=== PATIENT | female | born 1980 | race Caucasian/White ===

== ENCOUNTER 2020-10-11 09:32 | Emergency (ER) | payer OTHER ==
[~2020-10-11] VITALS: Ht 154.9 cm; Wt 59.3 kg
[2020-10-11] MEDS ORDERED: MEDR150I10 IM (09:41)
[2020-10-11 10:30] LABS: BASO % 0.6 % (0.0-1.0); EOS # 0.1 10^3/uL (0.0-0.5); EOS % 2.1 % (0.0-3.0); HEMATOCRIT 46.3 % (36.0-47.0); HEMOGLOBIN 14.7 g/dl (12.0-15.5); LYMPH # 2.2 10^3/uL (1.5-5.0); LYMPH % 34.2 % (24.0-44.0); MEAN CORPUSCULAR HGB CONC 31.7 g/dl (32.0-36.5); MEAN CORPUSCULAR VOLUME 94.5 fl (80.0-96.0); MONO # 0.4 10^3/uL (0.0-0.8); MONO % 5.5 % (0.0-5.0); NEUTROPHILS # 3.8 10^3/uL (1.5-8.5); NEUTROPHILS % 57.4 % (36.0-66.0); PLATELET COUNT, AUTOMATED 252 10^3/uL (150-450); WHITE BLOOD COUNT 6.6 10^3/uL (4.0-10.0)
[2020-10-11] MEDS ORDERED: ACETAMINOPHEN 500 MG TAB PO ONE (10:30)
[2020-10-11 11:04] LABS: HCG, SERUM QUALITATIVE NEGATIVE (NEGATIVE)
[2020-10-11 11:09] LABS: BLOOD UREA NITROGEN 10 MG/DL (7-18); CALCIUM LEVEL 8.7 MG/DL (8.5-10.1); CARBON DIOXIDE LEVEL 25 MEQ/L (21-32); CHLORIDE LEVEL 111 MEQ/L (98-107); CK-MB VALUE MASS < 1.0 NG/ML (<3.6); CPK CREATINE PHOSPHOKINASE 119 U/L (26-192); CREATININE FOR GFR 0.78 MG/DL (0.55-1.30); GLOMERULAR FILTRATION RATE > 60.0 (>60); GLUCOSE, FASTING 105 MG/DL (70-100); MB/CK RELATIVE INDEX 0.84 (< OR =4); POTASSIUM SERUM 3.7 MEQ/L (3.5-5.1); SODIUM LEVEL 140 MEQ/L (136-145); TROPONIN I < 0.02 NG/ML (< 0.10)
--- NOTE | 2020-10-11 11:26 | REP ---
INDICATION: unequal pupils. COMPARISON: None. TECHNIQUE: Helical scanning is acquired. 5 mm axial images were reformatted. Coronal MPR images were generated. FINDINGS: Bone window settings demonstrate an intact bony calvarium. There is no evidence of skull fracture or incidental bony calvarial lesion. The visualized paranasal sinuses appear clear. No intraorbital abnormality is seen. On soft tissue window setting images; the lateral, third, and fourth ventricles are normal in size and position. Mora-white differentiation pattern is normal above and below the tentorium. There are is no evidence of intracranial hemorrhage. No mass, edema, infarction, or midline shift is seen. No extra-axial fluid collection is appreciated. IMPRESSION: Negative noncontrast head CT. <Electronically signed by Orion Ledezma > 10/11/20 [id number]
--- NOTE | 2020-10-11 11:33 | REP ---
INDICATION: chest wall pain. COMPARISON: Comparison chest x-ray August 08, 2015. TECHNIQUE: Two views.. FINDINGS: The lungs are well inflated and free of infiltrate. The pleural angles are sharp. The heart size is normal. Pulmonary vasculature is not increased. No significant bony abnormality is seen. There is mild hyperinflation. IMPRESSION: Mild hyperinflation. Otherwise negative chest x-ray. No chest wall or bony abnormality seen.. <Electronically signed by Orion Ledezma > 10/11/20 1120
--- NOTE | 2020-10-11 11:34 | REP ---
INDICATION: right chest wall pain. COMPARISON: Comparison chest x-ray August 08, 2015.. Comparison is made with today's chest x-ray. TECHNIQUE: Four views of the right rib cage. FINDINGS: The right lung is clear. Four views right rib cage show no evidence of rib fracture or bony destructive lesion. IMPRESSION: Negative right rib radiographs. <Electronically signed by Orion Ledezma > 10/11/20 113
[2020-10-11 12:42] VITALS: BP 142/78
--- NOTE | 2020-10-12 06:38 | ECGEPIP ---
[facility] - ED Test Date: 2020-10-11 Pat Name: KUNAL BLAS Department: Room: - Gender: Female [employer]actic Instructor: : [id number] Requested By: DAVE Uribe PA-C Order Number: [id number] Reading MD: Lupe Carlin Measurements Intervals [place] Rate: 55 P: 12 TX: 128 QRS: 33 QRSD: 81 T: 25 QT: 419 QTc: 404 Interpretive Statements SINUS BRADYCARDIA NONSPECIFIC ST T WAVE CHANGES NO PRIOR ECG FOR COMPARISON Electronically Signed on 10-12-2020 6:38:10 EST by Lupe Carlin
== END 2020-10-11 12:53 | disposition home or self-care (01) ==
LOC: M ED 09:32
DX: S29.011A Strain of muscle and tendon of front wall of thorax, initial encounter (principal); X50.1XXA Overexertion from prolonged static or awkward postures, initial encounter; Y92.098 Other place in other non-institutional residence as the place of occurrence of the external cause; Y93.89 Activity, other specified; Y99.8 Other external cause status; F17.200 Nicotine dependence, unspecified, uncomplicated

== ENCOUNTER → 2021-12-26 | Outpatient (CLI) | payer OTHER ==
[~2021-12-26] MED LIST: MEDR150I10 IM
== END ==
LOC: M WHC 14:30
PROVIDERS: ATTEND Obstetrics & Gynecology
DX: R10.2 Pelvic and perineal pain (principal)

== ENCOUNTER → 2022-01-08 | Outpatient (CLI) | payer OTHER ==
[2022-01-08 13:59] LABS: BASO # 0.1 10^3/uL (0.0-0.2); BASO % 0.5 % (0.0-1.0); EOS # 0.2 10^3/uL (0.0-0.5); HEMATOCRIT 43.2 % (36.0-47.0); LYMPH # 2.5 10^3/uL (1.5-5.0); LYMPH % 25.8 % (24.0-44.0); MEAN CORPUSCULAR HEMOGLOBIN 29.5 pg (27.0-33.0); MEAN CORPUSCULAR HGB CONC 32.4 g/dl (32.0-36.5); MEAN CORPUSCULAR VOLUME 90.9 fl (80.0-96.0); MONO # 0.7 10^3/uL (0.0-0.8); MONO % 7.5 % (2.0-8.0); NEUTROPHILS # 6.2 10^3/uL (1.5-8.5); PLATELET COUNT, AUTOMATED 322 10^3/uL (150-450); RED BLOOD COUNT 4.75 10^6/uL (4.00-5.40); WHITE BLOOD COUNT 9.7 10^3/uL (4.0-10.0)
[2022-01-08 15:09] LABS: C REACTIVE PROTEIN QUANTITATIV 1.74 MG/DL (0.00-0.30); RHEUMATOID FACTOR QUANT < 10.0 IU/ML (<15.0)
[2022-01-08 20:41] LABS: ERYTHROCYTE SEDIMENTATION RATE 29 mm/hr (0-20)
[2022-01-09 14:09] LABS: ANTINUCLEAR ANTIBODIES DIRECT Negative (Negative); Lyme Disease IgG/IgM Antibodie <0.91 ISR (0.00-0.90); Lyme Disease IgM Ab Quantitati <0.80 index (0.00-0.79)
== END ==
LOC: M PLALAB 10:34
PROVIDERS: ATTEND Orthopaedic Surgery
DX: R10.2 Pelvic and perineal pain (principal)

== ENCOUNTER 2022-01-28 14:31 | Inpatient (IN) | payer OTHER ==
[~2022-01-28] VITALS: Ht 154.9 cm; Wt 57.7 kg
[2022-01-28] MEDS ORDERED: NAPR220C14 PO (14:42)
[2022-01-28] MEDS ORDERED: NS 1,000 ML IV ONE (16:45)
[2022-01-28] MEDS ORDERED: KETOROLAC 30 MG/ML 1ML VIAL IV ONE (16:50)
[2022-01-28 17:09] LABS: BASO % 0.4 % (0.0-1.0); EOS # 0.2 10^3/uL (0.0-0.5); EOS % 2.4 % (0.0-3.0); LYMPH # 2.2 10^3/uL (1.5-5.0); LYMPH % 21.3 % (24.0-44.0); MEAN CORPUSCULAR HEMOGLOBIN 28.8 pg (27.0-33.0); MEAN CORPUSCULAR HGB CONC 32.5 g/dl (32.0-36.5); MEAN CORPUSCULAR VOLUME 88.7 fl (80.0-96.0); MONO # 0.8 10^3/uL (0.0-0.8); NEUTROPHILS # 6.9 10^3/uL (1.5-8.5); NEUTROPHILS % 67.4 % (36.0-66.0); PLATELET COUNT, AUTOMATED 310 10^3/uL (150-450); RED BLOOD COUNT 4.51 10^6/uL (4.00-5.40); WHITE BLOOD COUNT 10.2 10^3/uL (4.0-10.0)
[2022-01-28 17:35] LABS: ALBUMIN 3.5 GM/DL (3.2-5.2); BILIRUBIN,DIRECT 0.2 MG/DL (0.0-0.2); BILIRUBIN,TOTAL 0.6 MG/DL (0.2-1.0); C REACTIVE PROTEIN QUANTITATIV 4.84 MG/DL (0.00-0.30); TOTAL PROTEIN 7.5 GM/DL (6.4-8.2)
[2022-01-28 17:36] LABS: ERYTHROCYTE SEDIMENTATION RATE 40 mm/hr (0-20)
[2022-01-28] MEDS ORDERED: ISOVUE-370 76% 100ML VIAL As Ordered ONE (18:13)
[2022-01-28] MEDS ORDERED: HOME MED LIST COMPLETE! XX SCH (20:40)
[2022-01-28 21:04] LABS: GC DNA AMPLIFICATION NEGATIVE (NEGATIVE)
[2022-01-28] MEDS ORDERED: HYDROmorphone HCL 2MG/ML 1ML VIAL IV PRN (23:10)
[2022-01-28] MEDS: NS 1,000 ML IV SCH (23:10)
[2022-01-28 23:15] LABS: RSV AMPLIFICATION NEGATIVE (NEGATIVE)
[2022-01-29] VITALS (9 sets, daily range): BP systolic 112–149; BP diastolic 58–88
[2022-01-29] MEDS ORDERED: NICOTINE 14 MG/24 HR TRANSDERMAL TD ONE
[2022-01-29] MEDS ORDERED: HYDROMORPHONE HCL 0.5 MG/ 0.5 ML SYRINGE (J1170 PER 1) IV PRN (01:00)
[2022-01-29] MEDS ORDERED: NICOTINE 14 MG/24 HR TRANSDERMAL TD PRN (01:10)
[2022-01-29] MEDS: ONDANSETRON 4MG/2ML VIAL IV PRN ×2 (01:44→08:11)
[2022-01-29] MEDS: HYDROMORPHONE HCL 0.5 MG/ 0.5 ML SYRINGE (J1170 PER 1) IV PRN ×2 (01:45→08:14)
[2022-01-29 06:59] LABS: BASO # 0.1 10^3/uL (0.0-0.2); BASO % 0.6 % (0.0-1.0); EOS # 0.2 10^3/uL (0.0-0.5); EOS % 2.2 % (0.0-3.0); HEMATOCRIT 39.6 % (36.0-47.0); HEMOGLOBIN 12.6 g/dl (12.0-15.5); LYMPH # 1.8 10^3/uL (1.5-5.0); LYMPH % 19.6 % (24.0-44.0); MEAN CORPUSCULAR HEMOGLOBIN 28.2 pg (27.0-33.0); MEAN CORPUSCULAR HGB CONC 31.8 g/dl (32.0-36.5); MEAN CORPUSCULAR VOLUME 88.6 fl (80.0-96.0); MONO # 0.7 10^3/uL (0.0-0.8); MONO % 8.3 % (2.0-8.0); NEUTROPHILS # 6.2 10^3/uL (1.5-8.5); NEUTROPHILS % 68.9 % (36.0-66.0); PLATELET COUNT, AUTOMATED 284 10^3/uL (150-450); RED BLOOD COUNT 4.47 10^6/uL (4.00-5.40); WHITE BLOOD COUNT 8.9 10^3/uL (4.0-10.0)
[2022-01-29 07:25] LABS: BLOOD UREA NITROGEN 8 MG/DL (7-18); CALCIUM LEVEL 8.3 MG/DL (8.5-10.1); CARBON DIOXIDE LEVEL 24 MEQ/L (21-32); CHLORIDE LEVEL 111 MEQ/L (98-107); CREATININE FOR GFR 0.53 MG/DL (0.55-1.30); GLOMERULAR FILTRATION RATE > 60.0 (>60); GLUCOSE, FASTING 98 MG/DL (70-100); SODIUM LEVEL 141 MEQ/L (136-145)
[2022-01-29 07:59] LABS: INR 1.16; PARTIAL THROMBOPLASTIN TIME 27.2 SECONDS (25.9-37.0); PROTHROMBIN TIME 15.2 SECONDS (12.7-14.5)
[2022-01-29 09:48] LABS: CA19-9 TUMOR MARKER,CARBOHYDRA 22.2 U/ML (<35.0)
[2022-01-29 10:42] LABS: CA 125 983.9 U/ML (<30.2)
[2022-01-29] MEDS: NS 1,000 ML IV SCH ×2 (10:47→20:17)
[2022-01-29] MEDS ORDERED: LIDOCAINE 1% MDV 20ML VIAL As Ordered ONE (11:43)
[2022-01-29] MEDS ORDERED: NALOXONE INJ 0.4MG/1ML VIAL (J2310 PER 1MG) IV PRN (13:05)
[2022-01-29] MEDS ORDERED: PILL CUTTER 1 EACH XX PRN (14:10)
[2022-01-29] MEDS: MORPHINE 30 MG TAB **MSIR PO PRN (20:18)
[2022-01-29] MEDS ORDERED: HEPARIN SOD (PORCINE) 5000UNITS/ML 1ML VIAL/SYRINGE SC SCH (22:00)
[2022-01-30] MEDS: MORPHINE 30 MG TAB **MSIR PO PRN ×4 (03:17→21:35)
[2022-01-30] MEDS: NS 1,000 ML IV SCH (05:57)
[2022-01-30 06:00] VITALS: BP 105/55
[2022-01-30 06:30] LABS: HEMATOCRIT 38.4 % (36.0-47.0); HEMOGLOBIN 12.5 g/dl (12.0-15.5); MEAN CORPUSCULAR HGB CONC 32.6 g/dl (32.0-36.5); MEAN CORPUSCULAR VOLUME 89.1 fl (80.0-96.0); PLATELET COUNT, AUTOMATED 262 10^3/uL (150-450); RED BLOOD COUNT 4.31 10^6/uL (4.00-5.40); WHITE BLOOD COUNT 8.2 10^3/uL (4.0-10.0)
[2022-01-30 06:51] LABS: ALBUMIN 2.9 GM/DL (3.2-5.2); ALT/SGPT 34 U/L (12-78); BILIRUBIN,TOTAL 0.7 MG/DL (0.2-1.0); BLOOD UREA NITROGEN 5 MG/DL (7-18); CALCIUM LEVEL 8.1 MG/DL (8.5-10.1); CARBON DIOXIDE LEVEL 27 MEQ/L (21-32); CHLORIDE LEVEL 109 MEQ/L (98-107); GLOMERULAR FILTRATION RATE > 60.0 (>60); GLUCOSE, FASTING 91 MG/DL (70-100); POTASSIUM SERUM 3.6 MEQ/L (3.5-5.1); SODIUM LEVEL 140 MEQ/L (136-145); TOTAL PROTEIN 6.2 GM/DL (6.4-8.2)
[2022-01-30] MEDS ORDERED: MIRALAX *UNIT DOSE* 17GM PACKET PO PRN (08:20)
[2022-01-30] MEDS: DOCUSATE SODIUM 100MG CAPSULE PO SCH ×2 (08:51→21:32)
[2022-01-30] MEDS: ENOXAPARIN 40MG/0.4ML SYRINGE (J1650 PER 10MG) SC SCH (08:51)
[2022-01-30] MEDS: ONDANSETRON 4MG/2ML VIAL IV PRN (11:41)
[2022-01-30 14:00] VITALS: BP 106/66
[2022-01-30 20:31] VITALS: BP 126/62
[2022-01-30] MEDS ORDERED: SENNA 8.6 MG TAB (SENOKOT) PO SCH (21:00)
[2022-01-30] MEDS ORDERED: APAP325T4 PO (21:09)
[2022-01-30] MEDS ORDERED: MORP15TA2 PO (21:09)
[2022-01-30] MEDS ORDERED: COLA100C5 PO (21:09)
[2022-01-30] MEDS ORDERED: SENN18TA PO (21:09)
[2022-01-30] MEDS ORDERED: ONDA4TAB6 PO (21:09)
[2022-01-30] MEDS ORDERED: NALO0.4I3 NARES (21:09)
[2022-01-30] MEDS ORDERED: MIRA1POW3 PO (21:09)
[2022-01-31] MEDS: MORPHINE 30 MG TAB **MSIR PO PRN (02:53)
[2022-01-31] MEDS ORDERED: MORPHINE 30 MG TAB **MSIR PO ONE (05:00)
[2022-01-31 05:58] VITALS: BP 119/63
[2022-01-31 06:15] LABS: HEMATOCRIT 37.8 % (36.0-47.0); HEMOGLOBIN 12.4 g/dl (12.0-15.5); MEAN CORPUSCULAR HEMOGLOBIN 28.9 pg (27.0-33.0); MEAN CORPUSCULAR HGB CONC 32.8 g/dl (32.0-36.5); MEAN CORPUSCULAR VOLUME 88.1 fl (80.0-96.0); PLATELET COUNT, AUTOMATED 263 10^3/uL (150-450); RED BLOOD COUNT 4.29 10^6/uL (4.00-5.40); WHITE BLOOD COUNT 8.5 10^3/uL (4.0-10.0)
[2022-01-31 06:37] LABS: ALT/SGPT 29 U/L (12-78); BILIRUBIN,TOTAL 0.4 MG/DL (0.2-1.0); BLOOD UREA NITROGEN 5 MG/DL (7-18); CALCIUM LEVEL 8.5 MG/DL (8.5-10.1); CARBON DIOXIDE LEVEL 27 MEQ/L (21-32); CHLORIDE LEVEL 108 MEQ/L (98-107); CREATININE FOR GFR 0.55 MG/DL (0.55-1.30); GLOMERULAR FILTRATION RATE > 60.0 (>60); GLUCOSE, FASTING 97 MG/DL (70-100); POTASSIUM SERUM 3.5 MEQ/L (3.5-5.1); SODIUM LEVEL 140 MEQ/L (136-145); TOTAL PROTEIN 6.4 GM/DL (6.4-8.2)
[2022-01-31] MEDS: ENOXAPARIN 40MG/0.4ML SYRINGE (J1650 PER 10MG) SC SCH (08:17)
[2022-01-31] MEDS: DOCUSATE SODIUM 100MG CAPSULE PO SCH (08:17)
[2022-01-31] MEDS: ONDANSETRON 4MG/2ML VIAL IV PRN (08:24)
== END 2022-01-31 11:29 | disposition home or self-care (01) | DRG 530 ==
LOC: M ED 14:31 → M ED INP 23:07 → M PED 01-29 00:41 → M MSPAV 01-29 15:55
PROVIDERS: ADMIT Internal Medicine; ATTEND Internal Medicine
PROC: 0FB13ZX Excision of Right Lobe Liver, Percutaneous Approach, Diagnostic (ICD-10-PCS; principal; 2022-01-29 11:00)
DX: C56.1 Malignant neoplasm of right ovary (principal); C78.7 Secondary malignant neoplasm of liver and intrahepatic bile duct; C78.89 Secondary malignant neoplasm of other digestive organs; C79.70 Secondary malignant neoplasm of unspecified adrenal gland; F17.210 Nicotine dependence, cigarettes, uncomplicated; F10.10 Alcohol abuse, uncomplicated; F12.10 Cannabis abuse, uncomplicated; Z85.3 Personal history of malignant neoplasm of breast; Z79.899 Other long term (current) drug therapy

== ENCOUNTER → 2022-02-02 | Outpatient (CLI) | payer OTHER ==
[~2022-02-02] MED LIST changes: +APAP325T4 PO; +COLA100C5 PO; +LIDOCAINE 1% MDV 20ML VIAL As Ordered ONE; +MIDAZOLAM INJ 2MG/2ML VIAL (J2250 PER 1MG) As Ordered ONE; +MIRA1POW3 PO; +MORP15TA2 PO; +NALO0.4I3 NARES; +NAPR220C14 PO; +NS 1,000 ML IV SCH; +ONDA4TAB6 PO; +SENN18TA PO; +ceFAZolin 2 GM/D5W 50 ML IV BAG (J0690 PER 500MG) As Ordered ONE; +ceFAZolin SOD 2 GM in IV 1 EA IV ONE; +diphenhydrAMINE 50MG/ML VIAL (J1200) As Ordered ONE; +fentaNYL 100 MCG/2 ML INJECTION As Ordered ONE
[2022-02-02 10:58] VITALS: BP 115/73
== END ==
LOC: M IRPRO 07:18
PROVIDERS: ATTEND Internal Medicine Hematology & Oncology
DX: K86.9 Disease of pancreas, unspecified (principal)
CPT/HCPCS: 36561; 99152; 99153; C1769; C1788; C1894; J0690; J1200; J1642; J1644; J2250; J3010

== ENCOUNTER → 2022-02-10 | Outpatient (POV) | payer OTHER ==
[~2022-02-10] VITALS: Ht 154.9 cm; Wt 59.0 kg
[~2022-02-10] MED LIST changes: -LIDOCAINE 1% MDV 20ML VIAL As Ordered ONE; -MIDAZOLAM INJ 2MG/2ML VIAL (J2250 PER 1MG) As Ordered ONE; -NS 1,000 ML IV SCH; -ceFAZolin 2 GM/D5W 50 ML IV BAG (J0690 PER 500MG) As Ordered ONE; -ceFAZolin SOD 2 GM in IV 1 EA IV ONE; -diphenhydrAMINE 50MG/ML VIAL (J1200) As Ordered ONE; -fentaNYL 100 MCG/2 ML INJECTION As Ordered ONE
[2022-02-10 11:15] VITALS: BP 145/91
== END ==
LOC: M IRPOV 11:05
PROVIDERS: ATTEND Radiology Diagnostic Radiology
DX: Z45.2 Encounter for adjustment and management of vascular access device (principal)

== ENCOUNTER → 2022-02-23 | Outpatient (CLI) | payer OTHER ==
[~2022-02-23] MED LIST changes: +ONDA-84 PO; +PROC10TA5 PO
== END ==
LOC: M PLARAD 14:11
PROVIDERS: ATTEND Internal Medicine Medical Oncology
DX: C25.8 Malignant neoplasm of overlapping sites of pancreas (principal)
CPT/HCPCS: 78815; A9552

== ENCOUNTER → 2022-03-25 | Outpatient (REF) | payer OTHER ==
[~2022-03-25] MED LIST changes: +MORP-69 PO
== END ==
LOC: M LAB REF 13:36
PROVIDERS: ATTEND Internal Medicine Medical Oncology
DX: C25.9 Malignant neoplasm of pancreas, unspecified (principal)

== ENCOUNTER 2022-04-30 13:34 | Inpatient (IN) | payer OTHER ==
[~2022-04-30] VITALS: Ht 154.9 cm; Wt 42.8 kg
[~2022-04-30 13:34] MED LIST changes: +LOMO2.5T PO; +POTA-151 PO
[2022-04-30] MEDS ORDERED: MULTIVITAMIN -ADULT INJECTION 10 ML, THIAMINE INJection 100 MG, FOLIC ACID 1 MG in NS 1... IV ONE (14:15)
[2022-04-30] MEDS ORDERED: NS 500 ML IV ONE ×2 (14:20→16:10)
[2022-04-30] MEDS ORDERED: ONDANSETRON 4MG/2ML VIAL IV ONE (14:20)
[2022-04-30 14:51] LABS: HEMOGLOBIN 9.7 g/dl (12.0-15.5); MEAN CORPUSCULAR HEMOGLOBIN 26.9 pg (27.0-33.0); MEAN CORPUSCULAR HGB CONC 33.4 g/dl (32.0-36.5); MEAN CORPUSCULAR VOLUME 80.6 fl (80.0-96.0); WHITE BLOOD COUNT 1.6 10^3/uL (4.0-10.0)
[2022-04-30 15:08] LABS: PLATELET COUNT, AUTOMATED 45 10^3/uL (150-450)
[2022-04-30 15:16] LABS: BASOPHILS 1 % (0-1); EOSINOPHILS 1 % (0-3); LYMPHOCYTES 61 % (16-44); MONOCYTES 21 % (0-5); NEUTROPHILS 13 % (28-66)
[2022-04-30 15:18] LABS: GIANT PLATELETS 1+; MICROCYTOSIS 2+; PLATELET ESTIMATE DECREASED (NORMAL); TEAR DROP CELLS 1+
[2022-04-30 15:24] LABS: ALBUMIN 3.6 GM/DL (3.2-5.2); BILIRUBIN,DIRECT 0.3 MG/DL (0.0-0.2); BILIRUBIN,TOTAL 0.8 MG/DL (0.2-1.0); TOTAL PROTEIN 7.6 GM/DL (6.4-8.2)
[2022-04-30 16:13] LABS: RSV AMPLIFICATION NEGATIVE (NEGATIVE)
[2022-04-30] MEDS ORDERED: ISOVUE-370 76% 100ML VIAL As Ordered ONE (17:37)
[2022-04-30] MEDS ORDERED: MORPHINE 2 MG/ML 1ML VIAL IV PRN (19:10)
[2022-04-30] MEDS: LR 1,000 ML IV SCH (19:10)
[2022-04-30] MEDS: MORPHINE 4 MG/ML 1ML VIAL/SYRINGE IV PRN (19:49)
[2022-04-30 20:09] LABS: INR 1.27; PROTHROMBIN TIME 16.3 SECONDS (12.7-14.5)
[2022-04-30 20:10] LABS: PARTIAL THROMBOPLASTIN TIME 31.5 SECONDS (25.9-37.0)
[2022-04-30] MEDS ORDERED: DIPH2.5T15 PO (20:37)
[2022-04-30] MEDS ORDERED: DOCU100C16 PO (20:37)
[2022-04-30] MEDS ORDERED: SENN-83 PO (20:37)
[2022-04-30] MEDS ORDERED: HOME MED LIST COMPLETE! XX SCH (20:40)
[2022-04-30] MEDS ORDERED: LOMOTIL 2.5MG/0.025MG TABLET PO PRN (21:15)
[2022-04-30] MEDS ORDERED: PROCHLORPERAZINE 5MG TAB PO PRN (21:15)
[2022-04-30 22:25] VITALS: BP 129/67
[2022-04-30] MEDS ORDERED: DARBEPOETIN 40 MCG/0.4 ML *NON-DIALYSIS* SYRINGE (J0881) SQ ONE (23:00)
[2022-05-01] VITALS (9 sets, daily range): BP systolic 119–133; BP diastolic 63–86
[2022-05-01] MEDS: MORPHINE 4 MG/ML 1ML VIAL/SYRINGE IV PRN ×5 (00:03→16:37)
[2022-05-01] MEDS: LR 1,000 ML IV SCH (05:55)
[2022-05-01 06:46] LABS: HEMATOCRIT 23.8 % (36.0-47.0); MEAN CORPUSCULAR HEMOGLOBIN 26.9 pg (27.0-33.0); MEAN CORPUSCULAR HGB CONC 32.4 g/dl (32.0-36.5); MEAN CORPUSCULAR VOLUME 83.2 fl (80.0-96.0); RED BLOOD COUNT 2.86 10^6/uL (4.00-5.40); WHITE BLOOD COUNT 2.2 10^3/uL (4.0-10.0)
[2022-05-01 07:06] LABS: ALBUMIN 2.6 GM/DL (3.2-5.2); ALT/SGPT 63 U/L (12-78); BILIRUBIN,TOTAL 0.4 MG/DL (0.2-1.0); BLOOD UREA NITROGEN 7 MG/DL (7-18); CALCIUM LEVEL 8.6 MG/DL (8.5-10.1); CARBON DIOXIDE LEVEL 23 MEQ/L (21-32); CHLORIDE LEVEL 103 MEQ/L (98-107); CREATININE FOR GFR 0.48 MG/DL (0.55-1.30); GLOMERULAR FILTRATION RATE > 60.0 (>60); GLUCOSE, FASTING 86 MG/DL (70-100); MAGNESIUM LEVEL 1.8 MG/DL (1.8-2.4); POTASSIUM SERUM 2.8 MEQ/L (3.5-5.1); SODIUM LEVEL 135 MEQ/L (136-145)
[2022-05-01 07:08] LABS: HEMOGLOBIN 7.7 g/dl (12.0-15.5); PLATELET COUNT, AUTOMATED 27 10^3/uL (150-450)
[2022-05-01] MEDS: ONDANSETRON 4MG/2ML VIAL IV PRN ×3 (07:48→16:35)
[2022-05-01] MEDS: POTASSIUM CHLORIDE 10MEQ SR TABLET PO SCH ×2 (07:48→10:15)
[2022-05-01 08:00] LABS: METAMYELOCYTES 2 % (0-0); MONOCYTES 24 % (0-5); NEUTROPHILS 19 % (28-66); PLATELET ESTIMATE MARKED DECREASE (NORMAL)
[2022-05-01 08:01] LABS: ANISOCYTOSIS 2+
[2022-05-01] MEDS ORDERED: FILGRASTIM 480 MCG/0.8 ML SYRINGE **SC ADMINISTRATION ONLY SC SCH (09:00)
[2022-05-01] MEDS ORDERED: FILGRASTIM 300 MCG/0.5 ML SYRINGE **SC ADMINISTRATION ONLY SC SCH (09:00)
[2022-05-01 09:13] LABS: LYMPHOCYTES 46 % (16-44)
[2022-05-01 17:16] LABS: HEMATOCRIT 30.5 % (36.0-47.0); MEAN CORPUSCULAR HEMOGLOBIN 26.7 pg (27.0-33.0); MEAN CORPUSCULAR HGB CONC 32.5 g/dl (32.0-36.5); MEAN CORPUSCULAR VOLUME 82.2 fl (80.0-96.0); RED BLOOD COUNT 3.71 10^6/uL (4.00-5.40)
[2022-05-01 17:22] LABS: PLATELET COUNT, AUTOMATED 37 10^3/uL (150-450)
[2022-05-01 17:23] LABS: HEMOGLOBIN 9.9 g/dl (12.0-15.5)
[2022-05-02] MEDS: MORPHINE 4 MG/ML 1ML VIAL/SYRINGE IV PRN ×3 (00:03→13:31)
[2022-05-02] MEDS: ONDANSETRON 4MG/2ML VIAL IV PRN (00:03)
[2022-05-02 05:24] VITALS: BP 124/80
[2022-05-02 07:31] LABS: HEMATOCRIT 32.9 % (36.0-47.0); HEMOGLOBIN 10.6 g/dl (12.0-15.5); MEAN CORPUSCULAR HEMOGLOBIN 26.5 pg (27.0-33.0); MEAN CORPUSCULAR HGB CONC 32.2 g/dl (32.0-36.5); MEAN CORPUSCULAR VOLUME 82.3 fl (80.0-96.0); PLATELET COUNT, AUTOMATED 36 10^3/uL (150-450); WHITE BLOOD COUNT 6.3 10^3/uL (4.0-10.0)
[2022-05-02 08:00] LABS: ALBUMIN 2.9 GM/DL (3.2-5.2); ALT/SGPT 54 U/L (12-78); BILIRUBIN,TOTAL 0.6 MG/DL (0.2-1.0); BLOOD UREA NITROGEN 6 MG/DL (7-18); CALCIUM LEVEL 9.2 MG/DL (8.5-10.1); CARBON DIOXIDE LEVEL 26 MEQ/L (21-32); CHLORIDE LEVEL 104 MEQ/L (98-107); CREATININE FOR GFR 0.69 MG/DL (0.55-1.30); GLOMERULAR FILTRATION RATE > 60.0 (>60); GLUCOSE, FASTING 106 MG/DL (70-100); MAGNESIUM LEVEL 1.8 MG/DL (1.8-2.4); POTASSIUM SERUM 3.2 MEQ/L (3.5-5.1); SODIUM LEVEL 139 MEQ/L (136-145); TOTAL PROTEIN 6.2 GM/DL (6.4-8.2)
[2022-05-02 08:11] LABS: ATYPICAL LYMPH 4 % (0-5); LYMPHOCYTES 45 % (16-44); METAMYELOCYTES 2 % (0-0); MONOCYTES 13 % (0-5); MYELOCYTES 1 % (0-0); NEUTROPHILS 27 % (28-66)
[2022-05-02 08:13] LABS: MICROCYTOSIS 2+; OVALOCYTES 1+
[2022-05-02 08:14] LABS: DOHLE BODIES 1+; GIANT PLATELETS 1+; PLATELET ESTIMATE DECREASED (NORMAL)
[2022-05-02] MEDS ORDERED: [UNRECOGNIZED DRUG - CODE] MT (09:48)
[2022-05-02] MEDS ORDERED: OMEP40CA4 PO (09:48)
[2022-05-02] MEDS ORDERED: POTASSIUM CHLORIDE 10MEQ SR TABLET PO ONE (10:00)
[2022-05-02] MEDS ORDERED: POTASSIUM CHLORIDE 10% LIQ 20 MEQ/15 ML UDC PO ONE (10:30)
[2022-05-04] MEDS ORDERED: LIDO1CRE42 TOP (09:52)
== END 2022-05-02 15:15 | disposition home or self-care (01) | DRG 254 ==
LOC: M ED 13:34 → M ED INP 19:10 → ENRESERV 21:13 → M MS5PR 22:25
PROVIDERS: ADMIT Family Medicine; ATTEND Family Medicine
PROC: 30233N1 Transfusion of Nonautologous Red Blood Cells into Peripheral Vein, Percutaneous Approach (ICD-10-PCS; principal; 2022-05-01)
DX: R13.10 Dysphagia, unspecified (principal); E43 Unspecified severe protein-calorie malnutrition; D61.810 Antineoplastic chemotherapy induced pancytopenia; C78.7 Secondary malignant neoplasm of liver and intrahepatic bile duct; D70.9 Neutropenia, unspecified; C78.89 Secondary malignant neoplasm of other digestive organs; C77.9 Secondary and unspecified malignant neoplasm of lymph node, unspecified; C79.72 Secondary malignant neoplasm of left adrenal gland; C56.9 Malignant neoplasm of unspecified ovary; E87.6 Hypokalemia; J02.9 Acute pharyngitis, unspecified; Z87.891 Personal history of nicotine dependence; Z79.891 Long term (current) use of opiate analgesic; Z79.899 Other long term (current) drug therapy; Z68.1 Body mass index [BMI] 19.9 or less, adult

== ENCOUNTER → 2022-06-29 | Outpatient (CLI) | payer OTHER ==
[~2022-06-29] MED LIST changes: +DIPH2.5T15 PO; +DOCU100C16 PO; +LIDO1CRE42 TOP; +OMEP40CA4 PO; +POTA20EL PO; +SENN-83 PO; +[UNRECOGNIZED DRUG - CODE] MT
== END ==
LOC: M PLARAD 11:20
PROVIDERS: ATTEND Internal Medicine Medical Oncology
DX: C25.2 Malignant neoplasm of tail of pancreas (principal); C78.7 Secondary malignant neoplasm of liver and intrahepatic bile duct; C79.51 Secondary malignant neoplasm of bone
CPT/HCPCS: 78815; A9552

== ENCOUNTER → 2022-09-21 | Outpatient (CLI) | payer OTHER ==
[2022-09-21 15:51] LABS: BASO % 0.5 % (0.0-1.0); EOS # 0.1 10^3/uL (0.0-0.5); EOS % 0.8 % (0.0-3.0); HEMOGLOBIN 8.6 g/dl (12.0-15.5); LYMPH # 1.8 10^3/uL (1.5-5.0); LYMPH % 27.9 % (24.0-44.0); MEAN CORPUSCULAR HGB CONC 33.1 g/dl (32.0-36.5); MEAN CORPUSCULAR VOLUME 108.8 fl (80.0-96.0); MONO # 0.4 10^3/uL (0.0-0.8); MONO % 6.7 % (2.0-8.0); NEUTROPHILS % 63.6 % (36.0-66.0); RED BLOOD COUNT 2.39 10^6/uL (4.00-5.40); WHITE BLOOD COUNT 6.3 10^3/uL (4.0-10.0)
[2022-09-21 15:55] LABS: PLATELET COUNT, AUTOMATED 92 10^3/uL (150-450)
== END ==
LOC: M PLALAB 14:04
PROVIDERS: ATTEND Internal Medicine Medical Oncology
DX: C25.9 Malignant neoplasm of pancreas, unspecified (principal)

== ENCOUNTER → 2022-09-30 | Outpatient (CLI) | payer OTHER ==
[2022-09-30 15:26] LABS: BASO % 0.3 % (0.0-1.0); EOS % 1.1 % (0.0-3.0); HEMATOCRIT 26.7 % (36.0-47.0); HEMOGLOBIN 8.7 g/dl (12.0-15.5); LYMPH # 1.2 10^3/uL (1.5-5.0); LYMPH % 33.3 % (24.0-44.0); MEAN CORPUSCULAR HGB CONC 32.6 g/dl (32.0-36.5); MEAN CORPUSCULAR VOLUME 110.3 fl (80.0-96.0); MONO # 0.2 10^3/uL (0.0-0.8); MONO % 6.4 % (2.0-8.0); NEUTROPHILS # 2.1 10^3/uL (1.5-8.5); NEUTROPHILS % 58.6 % (36.0-66.0); PLATELET COUNT, AUTOMATED 102 10^3/uL (150-450); RED BLOOD COUNT 2.42 10^6/uL (4.00-5.40); WHITE BLOOD COUNT 3.6 10^3/uL (4.0-10.0)
== END ==
LOC: M PLALAB 13:52
DX: C25.9 Malignant neoplasm of pancreas, unspecified (principal)

== ENCOUNTER → 2022-10-13 | Outpatient (CLI) | payer OTHER ==
[2022-10-13 11:40] LABS: BASO % 0.2 % (0.0-1.0); EOS # 0.1 10^3/uL (0.0-0.5); EOS % 1.2 % (0.0-3.0); HEMATOCRIT 25.7 % (36.0-47.0); HEMOGLOBIN 8.7 g/dl (12.0-15.5); LYMPH # 1.9 10^3/uL (1.5-5.0); MEAN CORPUSCULAR HEMOGLOBIN 36.9 pg (27.0-33.0); MEAN CORPUSCULAR HGB CONC 33.9 g/dl (32.0-36.5); MEAN CORPUSCULAR VOLUME 108.9 fl (80.0-96.0); MONO # 0.3 10^3/uL (0.0-0.8); MONO % 6.5 % (2.0-8.0); NEUTROPHILS # 1.9 10^3/uL (1.5-8.5); NEUTROPHILS % 45.9 % (36.0-66.0); RED BLOOD COUNT 2.36 10^6/uL (4.00-5.40); WHITE BLOOD COUNT 4.2 10^3/uL (4.0-10.0)
[2022-10-13 11:45] LABS: PLATELET COUNT, AUTOMATED 63 10^3/uL (150-450)
== END ==
LOC: M PLALAB 07:42
PROVIDERS: ATTEND Internal Medicine Medical Oncology
DX: C25.9 Malignant neoplasm of pancreas, unspecified (principal)

== ENCOUNTER → 2022-10-20 | Outpatient (CLI) | payer OTHER ==
[2022-10-20 15:57] LABS: BASO % 0.4 % (0.0-1.0); EOS % 0.6 % (0.0-3.0); HEMATOCRIT 28.1 % (36.0-47.0); HEMOGLOBIN 9.2 g/dl (12.0-15.5); LYMPH % 43.2 % (24.0-44.0); MEAN CORPUSCULAR HEMOGLOBIN 36.4 pg (27.0-33.0); MEAN CORPUSCULAR HGB CONC 32.7 g/dl (32.0-36.5); MEAN CORPUSCULAR VOLUME 111.1 fl (80.0-96.0); MONO # 0.3 10^3/uL (0.0-0.8); MONO % 6.9 % (2.0-8.0); NEUTROPHILS # 2.3 10^3/uL (1.5-8.5); NEUTROPHILS % 48.7 % (36.0-66.0); PLATELET COUNT, AUTOMATED 125 10^3/uL (150-450); RED BLOOD COUNT 2.53 10^6/uL (4.00-5.40); WHITE BLOOD COUNT 4.7 10^3/uL (4.0-10.0)
== END ==
LOC: M PLALAB 14:10
DX: C25.9 Malignant neoplasm of pancreas, unspecified (principal)

== ENCOUNTER 2022-11-27 14:45 | Inpatient (IN) | payer OTHER ==
[~2022-11-27] VITALS: Ht 154.9 cm; Wt 49.1 kg
[~2022-11-27 14:45] MED LIST changes: -LYNP150T PO
[2022-11-27] MEDS ORDERED: NS 1,000 ML IV SCH (15:20)
[2022-11-27 16:11] LABS: BASO % 0.3 % (0.0-1.0); EOS # 0.1 10^3/uL (0.0-0.5); EOS % 1.3 % (0.0-3.0); LYMPH # 1.4 10^3/uL (1.5-5.0); LYMPH % 37.9 % (24.0-44.0); MEAN CORPUSCULAR HEMOGLOBIN 36.5 pg (27.0-33.0); MEAN CORPUSCULAR VOLUME 110.6 fl (80.0-96.0); MONO # 0.2 10^3/uL (0.0-0.8); MONO % 5.4 % (2.0-8.0); NEUTROPHILS % 54.8 % (36.0-66.0); RED BLOOD COUNT 1.89 10^6/uL (4.00-5.40); WHITE BLOOD COUNT 3.7 10^3/uL (4.0-10.0)
[2022-11-27 16:21] LABS: INR 1.04; PARTIAL THROMBOPLASTIN TIME 26.5 SECONDS (24.8-34.2); PROTHROMBIN TIME 13.8 SECONDS (12.5-14.5)
[2022-11-27 16:22] LABS: PLATELET COUNT, AUTOMATED 75 10^3/uL (150-450)
[2022-11-27 16:23] LABS: HEMATOCRIT 20.9 % (36.0-47.0); HEMOGLOBIN 6.9 g/dl (12.0-15.5)
[2022-11-27 17:11] LABS: RSV AMPLIFICATION NEGATIVE (NEGATIVE)
[2022-11-27 18:55] LABS: ALBUMIN 3.4 G/DL (3.2-5.2); ALKALINE PHOSPHATASE 144 U/L (46-116); ALT/SGPT 12 U/L (7.0-40); AMYLASE 47 U/L (30-118); AST/SGOT 20 U/L (<34); BILIRUBIN,DIRECT < 0.1 MG/DL (<0.4); BILIRUBIN,TOTAL 0.2 MG/DL (0.3-1.2); BLOOD UREA NITROGEN 16 MG/DL (9-23); CALCIUM LEVEL 8.2 MG/DL (8.5-10.1); CARBON DIOXIDE LEVEL 25 MMOL/L (20-31); CHLORIDE LEVEL 109 MMOL/L (98-107); CREATININE FOR GFR 0.89 MG/DL (0.55-1.30); GLOMERULAR FILTRATION RATE > 60.0 (>58); GLUCOSE, FASTING 94 MG/DL (60-100); LIPASE 34 U/L (12-53); POTASSIUM SERUM 3.7 MMOL/L (3.5-5.1); SODIUM LEVEL 139 MMOL/L (136-145); TOTAL PROTEIN 6.4 G/DL (5.7-8.2)
[2022-11-27] MEDS ORDERED: HOME MED LIST COMPLETE! XX SCH (19:40)
[2022-11-27] MEDS ORDERED: LYNP150T PO (19:40)
[2022-11-27 20:57] VITALS: BP 94/55
[2022-11-27 21:11] VITALS: BP 92/56
[2022-11-27 22:10] VITALS: BP 97/58
[2022-11-27 22:56] VITALS: BP 96/53
[2022-11-28] VITALS (11 sets, daily range): BP systolic 103–130; BP diastolic 53–63
[2022-11-28 05:36] LABS: HEMATOCRIT 27.8 % (36.0-47.0); MEAN CORPUSCULAR HEMOGLOBIN 33.2 pg (27.0-33.0); MEAN CORPUSCULAR HGB CONC 34.2 g/dl (32.0-36.5); MEAN CORPUSCULAR VOLUME 97.2 fl (80.0-96.0); RED BLOOD COUNT 2.86 10^6/uL (4.00-5.40); WHITE BLOOD COUNT 3.7 10^3/uL (4.0-10.0)
[2022-11-28 05:38] LABS: PLATELET COUNT, AUTOMATED 55 10^3/uL (150-450)
[2022-11-28 05:39] LABS: HEMOGLOBIN 9.5 g/dl (12.0-15.5)
[2022-11-28 06:02] LABS: ALBUMIN 3.3 G/DL (3.2-5.2); ALKALINE PHOSPHATASE 144 U/L (46-116); ALT/SGPT 12 U/L (7.0-40); AST/SGOT 20 U/L (<34); BILIRUBIN,TOTAL 0.8 MG/DL (0.3-1.2); BLOOD UREA NITROGEN 12 MG/DL (9-23); CALCIUM LEVEL 8.4 MG/DL (8.5-10.1); CARBON DIOXIDE LEVEL 22 MMOL/L (20-31); CHLORIDE LEVEL 110 MMOL/L (98-107); CREATININE FOR GFR 0.84 MG/DL (0.55-1.30); GLOMERULAR FILTRATION RATE > 60.0 (>58); GLUCOSE, FASTING 94 MG/DL (60-100); POTASSIUM SERUM 4.2 MMOL/L (3.5-5.1); SODIUM LEVEL 139 MMOL/L (136-145)
== END 2022-11-28 13:58 | disposition home or self-care (01) | DRG 663 ==
LOC: M ED 14:45 → M ED INP 17:02 → M PCU 11-28 00:36
PROVIDERS: ADMIT Internal Medicine; ATTEND Internal Medicine
PROC: 30233N1 Transfusion of Nonautologous Red Blood Cells into Peripheral Vein, Percutaneous Approach (ICD-10-PCS; principal; 2022-11-27)
DX: D64.9 Anemia, unspecified (principal); C25.9 Malignant neoplasm of pancreas, unspecified; Z92.21 Personal history of antineoplastic chemotherapy; F17.210 Nicotine dependence, cigarettes, uncomplicated; Z20.822 Contact with and (suspected) exposure to COVID-19; Z79.891 Long term (current) use of opiate analgesic; Z79.899 Other long term (current) drug therapy

== ENCOUNTER → 2022-11-27 | Outpatient (CLI) | payer OTHER ==
[~2022-11-27] MED LIST changes: +LYNP150T PO
[2022-11-27 11:07] LABS: BASO % 0.3 % (0.0-1.0); EOS # 0.1 10^3/uL (0.0-0.5); EOS % 2.7 % (0.0-3.0); LYMPH # 1.2 10^3/uL (1.5-5.0); MEAN CORPUSCULAR HEMOGLOBIN 37.2 pg (27.0-33.0); MEAN CORPUSCULAR HGB CONC 33.2 g/dl (32.0-36.5); MONO # 0.2 10^3/uL (0.0-0.8); MONO % 6.3 % (2.0-8.0); NEUTROPHILS # 1.5 10^3/uL (1.5-8.5); NEUTROPHILS % 51.4 % (36.0-66.0); RED BLOOD COUNT 1.83 10^6/uL (4.00-5.40)
[2022-11-27 11:18] LABS: PLATELET COUNT, AUTOMATED 62 10^3/uL (150-450)
[2022-11-27 11:31] LABS: HEMATOCRIT 20.5 % (36.0-47.0); HEMOGLOBIN 6.8 g/dl (12.0-15.5)
== END ==
LOC: M PLALAB 07:50
PROVIDERS: ATTEND Physician Assistant Medical
DX: C25.9 Malignant neoplasm of pancreas, unspecified (principal)

== ENCOUNTER → 2023-02-17 | Outpatient (REF) | payer OTHER ==
[~2023-02-17] MED LIST changes: +ACET325C5 PO; +AUGM500T34 PO; +K-TA10TA2 PO; +LIDO1CRE42; +LYNP150T PO; +MEDR150I10; +OMEP40CA5
== END ==
LOC: M LAB REF 15:51
PROVIDERS: ATTEND Surgery
DX: C44.509 Unspecified malignant neoplasm of skin of other part of trunk (principal)

== ENCOUNTER 2023-03-17 09:13 | Emergency (ER) | payer MEDICAID, OTHER ==
[~2023-03-17] VITALS: Ht 154.9 cm; Wt 48.1 kg
[2023-03-17] MEDS ORDERED: ONDANSETRON 4MG 2ML VIAL IV ONE (09:45)
[2023-03-17] MEDS ORDERED: NS 1,000 ML IV ONE (09:45)
[2023-03-17] MEDS ORDERED: MORPHINE 2 MG/ML 1ML VIAL IV PRN (09:45)
[2023-03-17 10:21] LABS: BASO % 0.6 % (0.0-1.0); EOS % 0.6 % (0.0-3.0); HEMOGLOBIN 11.4 g/dl (12.0-15.5); LYMPH # 1.3 10^3/uL (1.5-5.0); LYMPH % 37.9 % (24.0-44.0); MEAN CORPUSCULAR HEMOGLOBIN 32.7 pg (27.0-33.0); MEAN CORPUSCULAR HGB CONC 32.6 g/dl (32.0-36.5); MEAN CORPUSCULAR VOLUME 100.3 fl (80.0-96.0); MONO # 0.2 10^3/uL (0.0-0.8); NEUTROPHILS # 1.9 10^3/uL (1.5-8.5); NEUTROPHILS % 55.6 % (36.0-66.0); PLATELET COUNT, AUTOMATED 247 10^3/uL (150-450); RED BLOOD COUNT 3.49 10^6/uL (4.00-5.40); WHITE BLOOD COUNT 3.4 10^3/uL (4.0-10.0)
[2023-03-17 10:43] LABS: LIPASE 32 U/L (12-53)
[2023-03-17 11:10] LABS: ALBUMIN 4.1 G/DL (3.2-5.2); ALKALINE PHOSPHATASE 1689 U/L (46-116); ALT/SGPT 178 U/L (7.0-40); AST/SGOT 136 U/L (<34); BILIRUBIN,DIRECT 0.5 MG/DL (<0.4); BLOOD UREA NITROGEN 22 MG/DL (9-23); CALCIUM LEVEL 8.3 MG/DL (8.5-10.1); CARBON DIOXIDE LEVEL 20 MMOL/L (20-31); CHLORIDE LEVEL 102 MMOL/L (98-107); CREATININE FOR GFR 0.62 MG/DL (0.55-1.30); GLOMERULAR FILTRATION RATE > 60.0 (>58); GLUCOSE, FASTING 93 MG/DL (60-100); MAGNESIUM LEVEL 2.3 MG/DL (1.8-2.4); POTASSIUM SERUM 3.7 MMOL/L (3.5-5.1); SODIUM LEVEL 131 MMOL/L (136-145); TOTAL PROTEIN 7.9 G/DL (5.7-8.2)
[2023-03-17] MEDS ORDERED: ISOVUE-370 76% 100ML VIAL As Ordered ONE (11:16)
[2023-03-17] MEDS ORDERED: ONDA-84 PO (15:24)
[2023-03-17 15:30] VITALS: BP 131/85
== END 2023-03-17 15:54 | disposition home or self-care (01) ==
LOC: M ED 09:13
DX: R11.2 Nausea with vomiting, unspecified (principal); C25.9 Malignant neoplasm of pancreas, unspecified; Z92.21 Personal history of antineoplastic chemotherapy; Z79.899 Other long term (current) drug therapy
CPT/HCPCS: 74177; 80048; 80076; 83690; 83735; 85025; 96365; 96366; 96375; 99284; J2405; Q9967

== ENCOUNTER → 2023-04-28 | Outpatient (CLI) | payer OTHER, MEDICAID ==
[~2023-04-28] VITALS: Ht 154.9 cm; Wt 49.1 kg
[~2023-04-28] MED LIST changes: +ACET-897 PO; +CAPE1TAB2 PO; -K-TA10TA2 PO; +MORP30TASA PO; +POTA-165 PO; +POTA10CA60 PO; +SENN-111 PO; -SENN18TA PO
[2023-04-28 08:59] VITALS: BP 123/86; TEMP 97.3; O2SAT 100
== END ==
LOC: M PAL 08:53
PROVIDERS: ATTEND Nurse Practitioner Adult Health
DX: C25.9 Malignant neoplasm of pancreas, unspecified (principal); C78.7 Secondary malignant neoplasm of liver and intrahepatic bile duct; C79.51 Secondary malignant neoplasm of bone; Z51.5 Encounter for palliative care; Z92.21 Personal history of antineoplastic chemotherapy; G89.3 Neoplasm related pain (acute) (chronic); Z79.891 Long term (current) use of opiate analgesic; R11.0 Nausea; R63.0 Anorexia; F41.9 Anxiety disorder, unspecified; Z80.3 Family history of malignant neoplasm of breast; F17.210 Nicotine dependence, cigarettes, uncomplicated

== ENCOUNTER → 2023-05-19 | Outpatient (CLI) | payer OTHER ==
[~2023-05-19] MED LIST changes: -LIDO1CRE42; -LIDO1CRE42 TOP; +LIDO30CR18; +LIDO30CR18 TOP
== END ==
LOC: M RAD 08:20
PROVIDERS: ATTEND Internal Medicine Medical Oncology
DX: C25.1 Malignant neoplasm of body of pancreas (principal)

== ENCOUNTER → 2023-05-27 | Outpatient (CLI) | payer OTHER, MEDICAID ==
[~2023-05-27] VITALS: Ht 154.9 cm; Wt 48.5 kg
[~2023-05-27] MED LIST changes: +DEXA4TA PO; +MORP15TA2; +POTA8CAP10 PO; +[UNRECOGNIZED DRUG - CODE] PO
[2023-05-27 09:53] VITALS: BP 117/77; O2SAT 100
== END ==
LOC: M PAL 09:26
PROVIDERS: ATTEND Nurse Practitioner Adult Health
DX: C25.9 Malignant neoplasm of pancreas, unspecified (principal); C78.7 Secondary malignant neoplasm of liver and intrahepatic bile duct; R59.0 Localized enlarged lymph nodes; M89.9 Disorder of bone, unspecified; Z51.5 Encounter for palliative care; Z92.21 Personal history of antineoplastic chemotherapy; R74.01 Elevation of levels of liver transaminase levels; G89.3 Neoplasm related pain (acute) (chronic); Z79.891 Long term (current) use of opiate analgesic; R11.0 Nausea; R63.4 Abnormal weight loss; R63.0 Anorexia; F41.9 Anxiety disorder, unspecified; F17.210 Nicotine dependence, cigarettes, uncomplicated; Z80.3 Family history of malignant neoplasm of breast

== ENCOUNTER → 2023-06-01 | Outpatient (CLI) | payer OTHER, MEDICAID ==
[~2023-06-01] MED LIST changes: -MEDR150I10; -MEDR150I10 IM; +MEDR150I13; +MEDR150I13 IM
== END ==
LOC: M PAL 14:58
PROVIDERS: ATTEND Nurse Practitioner Adult Health
DX: C25.9 Malignant neoplasm of pancreas, unspecified (principal); C78.7 Secondary malignant neoplasm of liver and intrahepatic bile duct; R59.0 Localized enlarged lymph nodes; M89.9 Disorder of bone, unspecified; Z51.5 Encounter for palliative care; Z92.21 Personal history of antineoplastic chemotherapy; E80.7 Disorder of bilirubin metabolism, unspecified; R17 Unspecified jaundice; G89.3 Neoplasm related pain (acute) (chronic); R10.9 Unspecified abdominal pain; Z79.891 Long term (current) use of opiate analgesic; Z79.52 Long term (current) use of systemic steroids; R11.0 Nausea; R63.4 Abnormal weight loss; R63.0 Anorexia; F41.9 Anxiety disorder, unspecified; F17.210 Nicotine dependence, cigarettes, uncomplicated; Z80.3 Family history of malignant neoplasm of breast

== ENCOUNTER 2023-06-15 04:57 | Observation (INO) | payer MEDICAID, OTHER ==
[~2023-06-15] VITALS: Ht 154.9 cm; Wt 49.1 kg
[2023-06-15 05:12] VITALS: BP 108/70; TEMP 96.5; O2SAT 99
[2023-06-15] MEDS ORDERED: LORazepam 0.5 MG TAB PO PRN (06:10)
[2023-06-15] MEDS ORDERED: BISACODYL 10MG SUPP PR PRN (06:10)
[2023-06-15] MEDS ORDERED: FLEET ENEMA PR PRN (06:10)
[2023-06-15] MEDS ORDERED: ALBUTEROL SULFATE 2.5MG/0.5ML INH NEB SOLN INH PRN (06:10)
[2023-06-15] MEDS ORDERED: HOME MED LIST COMPLETE! XX SCH (08:50)
[2023-06-15] MEDS: ursodioL 300MG CAP PO SCH ×2 (09:52→20:20)
[2023-06-15] MEDS ORDERED: CALCIUM CARBONATE 500 MG CHEW U/D PO PRN (15:00)
[2023-06-15] MEDS: MORPHINE 10MG/0.5ML ORAL CONCENTRATE SOLUTION U/D SL PRN (16:01)
[2023-06-16] MEDS: ONDANSETRON 4MG ORAL DISINTEGRATING TAB PO PRN ×2 (08:25→20:30)
[2023-06-16] MEDS: ursodioL 300MG CAP PO SCH ×2 (08:25→20:30)
[2023-06-16] MEDS: MORPHINE 10MG/0.5ML ORAL CONCENTRATE SOLUTION U/D SL PRN ×7 (08:25→23:19)
[2023-06-16] MEDS: SALIVA SUBSTITUTE(MOUTHKOTE) BTL MT PRN (22:26)
[2023-06-17] MEDS ORDERED: LORazepam 2 MG/ML 1ML VIAL IM STA (01:13)
[2023-06-17] MEDS ORDERED: LORazepam 2 MG/ML 1ML VIAL IV STA (01:53)
[2023-06-17] MEDS: MORPHINE 10MG/0.5ML ORAL CONCENTRATE SOLUTION U/D SL PRN (07:37)
[2023-06-17] MEDS: SALIVA SUBSTITUTE(MOUTHKOTE) BTL MT PRN (08:29)
[2023-06-17] MEDS: ursodioL 300MG CAP PO SCH ×2 (08:29→19:55)
[2023-06-17] MEDS: MORPHINE 2 MG/ML 1ML VIAL IV PRN ×6 (09:05→16:23)
[2023-06-17] MEDS: LORazepam 2 MG/ML 1ML VIAL IV PRN ×6 (09:10→20:29)
[2023-06-17] MEDS ORDERED: MORPHINE 4 MG/ML 1ML VIAL IV ONE (17:00)
[2023-06-17] MEDS ORDERED: MORPHINE SULF IN 0.9% NACL 100 MG in IV 1 EA IV SCH ×2 (18:00)
[2023-06-18] MEDS ORDERED: FENTANYL REMOVAL DOCUMENTATION MISC XX SCH (09:00)
== END 2023-06-18 00:15 | disposition expired ==
LOC: M ED 04:57 → EDBD 04:57 → M ED INP 04:58 → ENRESERV 15:07 → M MSPAV 15:52
PROVIDERS: ADMIT Internal Medicine; ATTEND Internal Medicine
DX: C25.9 Malignant neoplasm of pancreas, unspecified (principal); R56.9 Unspecified convulsions; R55 Syncope and collapse; G89.3 Neoplasm related pain (acute) (chronic); C78.7 Secondary malignant neoplasm of liver and intrahepatic bile duct; K59.03 Drug induced constipation; T40.605A Adverse effect of unspecified narcotics, initial encounter; Z66 Do not resuscitate; Z79.899 Other long term (current) drug therapy; Z79.891 Long term (current) use of opiate analgesic; Z51.5 Encounter for palliative care
CPT/HCPCS: 87635; 96372; 96374; 96375; 96376; 99284; J2060